=== PATIENT | male | born 1965 | race Caucasian/White ===

== ENCOUNTER → 2018-07-03 | Outpatient (CLI) | payer BC, OTHER | LOC: CARD 09:27 | PROVIDERS: ATTEND Internal Medicine Cardiovascular Disease | DX: R07.89 Other chest pain (principal); I10 Essential (primary) hypertension; E78.2 Mixed hyperlipidemia; G47.33 Obstructive sleep apnea (adult) (pediatric); Z87.891 Personal history of nicotine dependence | CPT/HCPCS: 93306 ==

== ENCOUNTER → 2018-07-04 | Outpatient (CLI) | payer BC, OTHER ==
[~2018-07-04] MED LIST: CATHETER FLUSH 10 ML SYR IV PRN
[2018-07-04 09:02] VITALS: BP 134/84
[2018-07-04 09:06] VITALS: BP 176/81
--- NOTE | 2018-07-04 15:40 | STRESS TEST ---
DATE OF SERVICE: 07/04/2018 EXERCISE MYOVIEW STRESS TEST REPORT REFERRING PHYSICIAN: Wilson Felix MD. Baseline heart rate is 56. Baseline blood pressure is 150/86. Baseline EKG is sinus rhythm with occasional . In summary, the patient was injected with 10.58 mCi of technetium-99 Myoview and the resting images were obtained. Then, the patient started exercising with a baseline heart rate, blood pressure and EKG mentioned above. He was able to exercise for a total of 9 minutes on standard [place] protocol. With peak exercise level, EKG was showing nondiagnostic changes. During recovery, heart rate and blood pressure returned to baseline, the patient received a stress dose of 29.3 mCi of technetium-99 Myoview. The resting and stress images were reviewed and compared in the short axis, horizontal long axis and vertical long axis views. Review of the images showed diaphragmatic attenuation with decreased uptake at the inferior wall with subtle reversibility, no significant ischemia or infarction was noted. SSS is 0. TID value is 1.03. On the gated images, the left ventricle appeared to be normal size with normal contractility and calculated ejection fraction of 59%. CONCLUSION: 1. Good exercise tolerance, a total of 9 minutes on standard [place] protocol, total of 10.3 METS achieving 85% of maximum expected heart rate. 2. Severe hypertensive response to exercise with peak blood pressure of 228/88, returned to baseline during recovery. 3. Minimal nondiagnostic EKG changes with exercise returned to baseline during recovery. 4. Diaphragmatic attenuation with typical male pattern with no significant ischemia or infarction on SPECT images. 5. Normal left ventricular size with normal contractility and calculated ejection fraction of 59%. Job ID: [id number] DocumentID: [id number] Dictated Date: 07/04/2018 15:19:09 Flask Pusher Date: 07/04/2018 15:39:50 Dictated By: ABIGAIL KING MD
== END ==
LOC: CARD 06:55 → EDUNIT# 07:30
PROVIDERS: ATTEND Internal Medicine Cardiovascular Disease
DX: R07.89 Other chest pain (principal); I10 Essential (primary) hypertension; E78.2 Mixed hyperlipidemia; G47.33 Obstructive sleep apnea (adult) (pediatric); Z87.891 Personal history of nicotine dependence
CPT/HCPCS: 78452; 93017

== ENCOUNTER 2018-08-22 11:39 | Day surgery (SDC) | payer OTHER ==
[~2018-08-22] VITALS: Ht 177.8 cm; Wt 131.5 kg
[2018-08-22] VITALS (9 sets, daily range): BP systolic 100–131; BP diastolic 61–81
[2018-08-22] MEDS ORDERED: HEParin 1000 UNIT/ML (10ML VIAL) FOR BOLUS ONE (11:52)
[2018-08-22] MEDS ORDERED: LIDOCAINE 1% INJ 20 ML 20 ML VIAL ONE (11:52)
[2018-08-22] MEDS ORDERED: NS IV 1000 ML 1,000 ML ONE (11:53)
[2018-08-22] MEDS ORDERED: NS IV 1000 ML 1,000 ML IV SCH ×2 (12:15→15:04)
[2018-08-22 12:29] LABS: BILIRUBIN,URINE NEGATIVE (NEGATIVE); CLARITY,URINE CLEAR; COLOR,URINE YELLOW; GLUCOSE, URINE (UA) NEGATIVE (NEGATIVE); KETONES,URINE NEGATIVE (NEGATIVE); LEUKOCYTE ESTERASE ,URINE NEGATIVE (NEGATIVE); NITRITE,URINE NEGATIVE (NEGATIVE); PH,URINE 6.5 (5-9); PROTEIN,URINE NEGATIVE (NEGATIVE); UROBILINOGEN,URINE NORMAL (NORMAL)
[2018-08-22 12:33] LABS: HEMOGLOBIN 14.9 G/DL (13.3-17.7); RED CELL DISTRIBUTION WIDTH 12.6 % (10.0-14.5); WHITE BLOOD COUNT 5.7 10^3/uL (4.3-11.0)
[2018-08-22] MEDS ORDERED: LISI-552 PO (12:37)
[2018-08-22] MEDS ORDERED: ASPI-586 PO (12:37)
[2018-08-22] MEDS ORDERED: LOVA20TA2 PO (12:37)
[2018-08-22 12:42] LABS: BACTERIA,URINE NEGATIVE /HPF; WBC,URINE RARE /HPF
[2018-08-22 12:45] LABS: INR 0.9 (0.8-1.4)
[2018-08-22 12:47] LABS: ALANINE AMINOTRANSFERASE 32 U/L (0-55); ALBUMIN 4.4 GM/DL (3.2-4.5); ALKALINE PHOSPHATASE 73 U/L (40-136); BILIRUBIN,TOTAL 1.2 MG/DL (0.1-1.0); BUN/CREATININE RATIO 20; CALCIUM 10.1 MG/DL (8.5-10.1); CARBON DIOXIDE 27 MMOL/L (21-32); CHLORIDE 105 MMOL/L (98-107); CHOLESTEROL 217 MG/DL (< 200); CREATININE SERUM 0.92 MG/DL (0.60-1.30); GFR ESTIMATED > 60; GLUCOSE 100 MG/DL (70-105); HDL CHOLESTEROL 54 MG/DL (40-60); POTASSIUM 4.6 MMOL/L (3.6-5.0); SODIUM 141 MMOL/L (135-145); TOTAL PROTEIN 7.7 GM/DL (6.4-8.2); TRIGLYCERIDES 173 MG/DL (<150); VLDL CHOLESTEROL 35 MG/DL (5-40)
--- NOTE | 2018-08-22 12:52 | Diagnostic Imaging Report ---
INDICATION: Chest pain. EXAMINATION: Portable chest at 12:41 PM. FINDINGS: The heart size and pulmonary vascularity are normal. The lungs are clear. There are no effusions or pneumothoraces. IMPRESSION: Negative chest. Dictated by: Dictated on workstation # [id number]
[2018-08-22] MEDS ORDERED: MIDAZOLAM 5 MG/5 ML (VERSED) VIAL ONE (14:05)
[2018-08-22] MEDS ORDERED: fentaNYL INJECTION 100 MCG/2 ML AMP ONE (14:05)
[2018-08-22] MEDS ORDERED: HEParin (CATH LAB) 1,000 ML IV ONE (14:24)
[2018-08-22] MEDS ORDERED: VERAPAMIL 5 MG/2 ML (CALAN) VIAL IV ONE (14:28)
[2018-08-22] MEDS ORDERED: NITRO DRIP 25000 MCG/D5W 250 ML IV ONE (14:29)
--- NOTE | 2018-08-22 15:04 | Cardiac Procedure Note-CS/ASA ---
Pre-Procedure Note Pre-Op Procedure Note H&P Reviewed The H&P was reviewed, patient examined and no changes noted. Date H&P Reviewed: Aug 22, 2018 Time H&P Reviewed: 12:00 Conscious Sedation Pre-Proced Time 12:00 ASA Score 3 For ASA 3 and 4: Consider anesthesia and medical clearance. Also, for patients with a history of failed moderate sedation consider anesthesia. Airway Lungs Heart ASA score ASA 1: a normal healthy patient ASA 2: a patient with a mild systemic disease (mid diabetes, controlled hypertension, obesity x ASA 3: a patient with a severe systemic disease that limits activity (angina , COPD, prior Myocardial infarction) ASA 4: a patient with an incapacitating disease that is a constant threat to life (CHF, renal failure) ASA 5: a moribund patient not expected to survive 24 hrs. (ruptured aneurysm) ASA 6: a declared brain- patient whose organs are being harvested. For emergent operations, add the letter E after the classification Mallampati Classification Grade 3 Sedation Plan Analgesia, Amnesia, Plan communicated to team members, Discussed options with patient/fam, Discussed risks with patient/fam The patient is an appropriate candidate to undergo the planned procedure, sedation, and anesthesia. The patient immediately re-assessed prior to indication. ABIGAIL KING MD Aug 22, 2018 15:04
--- NOTE | 2018-08-22 15:06 | Discharge Inst-Post CATH ---
Discharge Inst-CATH/EP Post Cardiac Cath/EP D/C Inst Follow Up/Plan Appointment with Dr. Arevalo's office in 2-4 weeks <b>CARDIAC CATH/EP PROCEDURE DISCHARGE INSTRUCTIONS</b> Cardiac Rehab Please be expecting a follow up call from Cardiac Rehab within in one week. ACTIVITY * Go Home directly and rest. * Limit activity of the leg (or wrist if it was used) for 7 days including aerobics, swimming, jogging, bicycling, etc. * Restrict stair-climbing for 7 days if possible, if not, climb up with your non -cath leg, then bring together on the same step. * Avoid lifting, pushing, pulling or excessive movement of the affected extremity for 7 days. * Customary sexual activity may be resumed after 2 days-use caution not to use a position that strains or causes pain to the affected extremity. * No driving for 24 hours. * NO SMOKING. * Avoid straining for bowel movements for 7 days. * Gentle walking on level ground is allowed. * Returning to work will depend on the type of procedure and the results. Your doctor will discuss this with you. CALL YOUR DOCTOR FOR ANY OF THE FOLLOWING: *If bleeding from the puncture site occurs- Apply gentle pressure to site with clean cloth and call your doctor or EMS. * If a knot or lump forms under the skin, increases in size, or causes pain. * If bruising appears to be worsening or moving further down your leg instead of disappearing. * Temperature above 101 F. CARE OF YOUR GROIN INCISION; * Bruising or purple discoloration of the skin near the puncture site is common. * You may shower only, no bathtub bathing for 5 days. Be careful to avoid slipping as your leg may feel stiff. * If a closure device was used on your femoral artery, please see the attached guide regarding care of the device and your leg. * Leave dressing on FOR 24 hours. CARE OF YOUR WRIST INCISION; * Bruising or purple discoloration of the skin near the puncture site is common. * You may shower. * DO NOT submerge wrist. * Leave dressing on FOR 24 hours. ABIGAIL AREVALO MD Aug 22, 2018 15:06
--- NOTE | 2018-08-22 15:09 | Cardiac Cath Report ---
Cardiac Cath Report Physician (s)/Tile Erector (s) Physician ABIGAIL KING MD Pre-Procedure Diagnosis Pre-Procedure Diagnosis: coronary artery disease Post-Procedure Note Procedure Start Date: Aug 22, 2018 Name of Procedure: cardiac catheterization Findings/Procedure Note PROCEDURE NOTE: After explaining the procedure to the patient, all pros and cons were explained , all questions were answered. The patient signed the consent and then he was placed on the cardiac catheterization laboratory. Groin was prepped SL fashion local anesthesia was used. Sheath placed in the right radial artery. to diagonal catheter was used to access, advanced to the left ventricular cavity, pressure was measured, left ventriculogram was done, pullback LV to aorta was done, coronary angiogram was done. At the end of the procedure the sheath was removed. Closure device was used with vascular band FINDINGS: Hemodynamics LV 103/9, end-diastolic pressure of 9 Aorta 98/68 mean of 82 ANATOMY: Left Main is free of obstructive disease Left Anterior Descending is slightly tortuous with mild disease nonobstructive disease Left Circumflex has mild disease nonobstructive disease Right Coronory Artery is dominant artery with mild disease nonobstructive disease LV Gram was done showing normal left ventricular size and systolic function estimated ejection fraction 60 percent CONCLUSION: 1. Mild coronary artery disease nonobstructive disease 2. Normal left ventricular size and systolic function estimated ejection fraction 60 percent DISCUSSION AND RECOMMENDATION: medical therapy is recommended no intervention is needed Anesthesia Type: Conscious Sedation Estimated blood loss (mL): 5 ml Contrast Amount: 45 ml Total Radiation Dose: 506 mGy Post-Procedure Diagnosis Post-operative diagnosis: Anterior chest wall pain Coronary artery disease Hypertension Hyperlipidemia ABIGAIL KING MD Aug 22, 2018 15:09
== END 2018-08-22 17:45 | disposition home or self-care (01) ==
LOC: CATH 11:39 → SDC 15:20 → CATH 17:45
PROVIDERS: ATTEND Internal Medicine Cardiovascular Disease
DX: R07.89 Other chest pain (principal); I25.10 Atherosclerotic heart disease of native coronary artery without angina pectoris; I10 Essential (primary) hypertension; E78.2 Mixed hyperlipidemia; E66.9 Obesity, unspecified; G47.33 Obstructive sleep apnea (adult) (pediatric); Z79.82 Long term (current) use of aspirin; Z79.899 Other long term (current) drug therapy; Z87.891 Personal history of nicotine dependence; R53.83 Other fatigue; R06.09 Other forms of dyspnea; E88.81 Metabolic syndrome and other insulin resistance; R09.89 Other specified symptoms and signs involving the circulatory and respiratory systems; Z82.49 Family history of ischemic heart disease and other diseases of the circulatory system; Z68.41 Body mass index [BMI] 40.0-44.9, adult
CPT/HCPCS: 36415; 71045; 80053; 80061; 81000; 85027; 85610; 85730; 87081; 93458

== ENCOUNTER 2019-10-21 04:52 | Inpatient (IN) | payer OTHER ==
[2019-10-21] VITALS (18 sets, daily range): BP systolic 99–143; BP diastolic 65–93
[~2019-10-21] VITALS: Ht 177 cm; Wt 128.3 kg
[~2019-10-21 04:52] MED LIST changes: +ASPI-586 PO; -CATHETER FLUSH 10 ML SYR IV PRN; +LISI-552 PO; +LOVA20TA2 PO
--- OUTSIDE RECORDS SUMMARY | 2019-10-21 04:58 | XMS REPORT | Continuity of Care Document ---
Author Organization Unknown Address Unknown Phone Unavailable Allergies Active Description Code Type Severity Reaction Onset Reported/Identified Relationship to Patient Clinical Status Yes NO KNOWN DRUG ALLERGIES UNKNOWN UNKNOWN Yes No Allergy Information Available [id number] Drug Allergy Unknown N/A 019 Yes No Known Allergies [id number] Drug Allergy Unknown N/A 08/22/2018 Medications Medication Packaging Start Date St op Date Route Dosage Sig LACTATED RINGERS 1000CC IV BAG INJ ml 03/13/2019 03/20/2019 CONTINUOUSEVERY 0 Hour Problems Date Dx Coded Attending Type Code Diagnosis Diagnosed By 07/04/2018 ABIGAIL KING MD Ot E78. 2 MIXED HYPERLIPIDEMIA 07/04/2018 ABIGAIL KING MD Ot G47. 33 OBSTRUCTIVE SLEEP APNEA (ADULT) (PEDIATR 07/04/2018 ABIGAIL KING MD Ot I10 ESSENTIAL (PRIMARY) HYPERTENSION 07/04/2018 ABIGAIL KING MD Ot R07. 89 OTHER CHEST PAIN 07/04/2018 ABIGAIL KING MD Ot Z87.891 PERSONAL HISTORY OF NICOTINE DEPENDENCE 07/05/2018 ABIGAIL KING MD Ot E78. 2 MIXED HYPERLIPIDEMIA 07/05/2018 ABIGAIL KING MD Ot G47. 33 OBSTRUCTIVE SLEEP APNEA (ADULT) (PEDIATR 07/05/2018 ABIGAIL KING MD Ot I10 ESSENTIAL (PRIMARY) HYPERTENSION 07/05/2018 ABIGAIL KING MD Ot R07. 89 OTHER CHEST PAIN 07/05/2018 ABIGAIL KING MD Ot Z87.891 PERSONAL HISTORY OF NICOTINE DEPENDENCE 07/11/2018 ABIGAIL KING MD Ot E78. 2 MIXED HYPERLIPIDEMIA 07/11/2018 ABIGAIL KING MD Ot G47. 33 OBSTRUCTIVE SLEEP APNEA (ADULT) (PEDIATR 07/11/2018 ABIGAIL KING MD Ot I10 ESSENTIAL (PRIMARY) HYPERTENSION 07/11/2018 ABIGAIL KING MD Ot R07. 89 OTHER CHEST PAIN 07/11/2018 ABIGAIL KING MD Ot Z87.891 PERSONAL HISTORY OF NICOTINE DEPENDENCE 07/16/2018 ABIGAIL KING MD Ot E78. 2 MIXED HYPERLIPIDEMIA 07/16/2018 ABIGAIL KING MD Ot G47. 33 OBSTRUCTIVE SLEEP APNEA (ADULT) (PEDIATR 07/16/2018 ABIGAIL KING MD Ot I10 ESSENTIAL (PRIMARY) HYPERTENSION 07/16/2018 ABIGAIL KING MD Ot R07. 89 OTHER CHEST PAIN 07/16/2018 ABIGAIL KING MD Ot Z87.891 PERSONAL HISTORY OF NICOTINE DEPENDENCE 07/16/2018 ABIGAIL KING MD Ot E78. 2 MIXED HYPERLIPIDEMIA 07/16/2018 ABIGAIL KING MD Ot G47. 33 OBSTRUCTIVE SLEEP APNEA (ADULT) (PEDIATR 07/16/2018 ABIGAIL KING MD Ot I10 ESSENTIAL (PRIMARY) HYPERTENSION 07/16/2018 ABIGAIL KING MD Ot R07. 89 OTHER CHEST PAIN 07/16/2018 ABIGAIL KING MD Ot Z87.891 PERSONAL HISTORY OF NICOTINE DEPENDENCE 08/22/2018 ABIGAIL KING MD Ot E66. 9 OBESITY, UNSPECIFIED 08/22/2018 ABIGAIL KING MD Ot E78. 2 MIXED HYPERLIPIDEMIA 08/22/2018 ABIGAIL KING MD Ot E88. 81 METABOLIC SYNDROME 08/22/2018 ABIGAIL KING MD Ot G47. 33 OBSTRUCTIVE SLEEP APNEA (ADULT) (PEDIATR 08/22/2018 ABIGAIL KING MD Ot I10 ESSENTIAL (PRIMARY) HYPERTENSION 08/22/2018 ABIGAIL KING MD Ot I25. 10 ATHSCL HEART DISEASE OF [place] CORONARY 08/22/2018 ABIGAIL KING MD Ot R06. 09 OTHER FORMS OF DYSPNEA 08/22/2018 ABIGAIL KING MD Ot R07. 89 OTHER CHEST PAIN 08/22/2018 ABIGAIL KING MD Ot R09. 89 OT SYMPTOMS AND SIGNS INVOLVING THE CIR 08/22/2018 ABIGAIL KING MD Ot R53. 83 OTHER FATIGUE 08/22/2018 ABIGAIL KING MD Ot Z68. 41 BODY MASS INDEX (BMI) 40.0-44.9, ADULT 08/22/2018 ABIGAIL KING MD Ot Z79. 82 LONG-TERM (CURRENT) USE OF ASPIRIN 08/22/2018 ABIGAIL KING MD Ot Z79.899 OTHER LONG-TERM (CURRENT) DRUG THERAPY 08/22/2018 ABIGAIL KING MD Ot Z82. 49 FAMILY HX OF ISCHEM HEART DIS AND OTH DI 08/22/2018 ABIGAIL KING MD Ot Z87.891 PERSONAL HISTORY OF NICOTINE DEPENDENCE 08/23/2018 ABIGIAL KING MD Ot E66. 9 OBESITY, UNSPECIFIED 08/23/2018 ABIGAIL KING MD Ot E78. 2 MIXED HYPERLIPIDEMIA 08/23/2018 ABIGAIL KING MD Ot E88. 81 METABOLIC SYNDROME 08/23/2018 ABIGAIL KING MD Ot G47. 33 OBSTRUCTIVE SLEEP APNEA (ADULT) (PEDIATR 08/23/2018 ABIGAIL KING MD Ot I10 ESSENTIAL (PRIMARY) HYPERTENSION 08/23/2018 ABIGAIL KING MD Ot I25. 10 ATHSCL HEART DISEASE OF [place] CORONARY 08/23/2018 ABIGAIL KING MD Ot R06. 09 OTHER FORMS OF DYSPNEA 08/23/2018 ABIGAIL KING MD Ot R07. 89 OTHER CHEST PAIN 08/23/2018 ABIGAIL KING MD Ot R09. 89 OT SYMPTOMS AND SIGNS INVOLVING THE CIR 08/23/2018 ABIGAIL KING MD Ot R53. 83 OTHER FATIGUE 08/23/2018 ABIGAIL KING MD Ot Z68. 41 BODY MASS INDEX (BMI) 40.0-44.9, ADULT 08/23/2018 ABIGAIL KING MD Ot Z79. 82 LONG-TERM (CURRENT) USE OF ASPIRIN 08/23/2018 ABIGAIL KING MD Ot Z79.899 OTHER LONG-TERM (CURRENT) DRUG THERAPY 08/23/2018 ABIGAIL KING MD Ot Z82. 49 FAMILY HX OF ISCHEM HEART DIS AND OTH DI 08/23/2018 ABIGAIL KING MD Ot Z87.891 PERSONAL HISTORY OF NICOTINE DEPENDENCE 03/13/2019 BETH OBRIEN 455.0 INTERNAL HEMORRHOIDS WITHOUT MENTION OF COMPLICATION 03/13/2019 BETH OBRIEN 569.3 HEMORRHAGE OF RECTUM AND ANUS 03/13/2019 BETH OBRIEN K62.5 HEMORRHAGE OF ANUS AND RECTUM 03/13/2019 BETH OBRIEN K64.1 SECOND DEGREE HEMORRHOIDS Procedures There is no data. Results Test Result Range Automated blood complete blood count (he mogram) panel - 08/22/18 12:07 Blood leukocytes automated count (number/volume) 5.7 10*3/uL 4.3-11.0 Blood erythrocytes automated count (number/volume) 4.90 10*6/uL 4.35-5.85 Venous blood hemoglobin measurement (mass/volume) 14.9 g/dL 13.3-17.7 Blood hematocrit (volume fraction) 45 % 40-54 Automated erythrocyte mean corpuscular volume 91 [ foz_us] 80-99 Automated erythrocyte mean corpuscular h emoglobin (mass per erythrocyte) 30 pg 25-34 Automated erythrocyte mean corpuscular h emoglobin concentration measurement (mass/volume) 33 g/dL 32-36 Automated erythrocyte distribution width ratio 12. 6 % 10.0- 14.5 Automated blood platelet count (count/volume) 239 10*3/uL 130-400 Automated blood platelet mean volume measurement 10.0 [foz_us] 7.4-10.4 Complete urinalysis with reflex to cultu re - 08/22/18 12:07 Urine color determination YELLOW NRG Urine clarity determination CLEAR NR G Urine pH measurement by test strip 6.5 5-9 Specific gravity of urine by test strip 1.010 1.016-1.022 Urine protein assay by test strip, semi-quantitative NEGATIVE NEGATIVE Urine glucose detection by automated test strip NE GATIVE NEGATIVE Erythrocytes detection in urine sediment by light micr oscopy NEGATIVE NEGATIVE Urine ketones detection by automated test strip NE GATIVE NEGATIVE Urine nitrite detection by test strip NEGATIVE NEGATIVE Urine total bilirubin detection by test strip NEGA TIVE NEGATIVE Urine urobilinogen measurement by automated test strip (mass/volume) NORMAL NORMAL Urine leukocyte esterase detection by dipstick NEG ATIVE NEGATIVE Automated urine sediment erythrocyte cou nt by microscopy (number/high power field) NONE NRG Automated urine sediment leukocyte count by microscopy (number/high power field) RARE NRG Bacteria detection in urine sediment by light microsco py NEGATIVE NRG Crystals detection in urine sediment by light microsco py NONE NRG Casts detection in urine sediment by light microscopy NONE NRG Mucus detection in urine sediment by light microscopy NEGATIVE NRG Complete urinalysis with reflex to culture NO NRG Comprehensive metabolic panel - 08/22/18 12:07 Serum or plasma sodium measurement (moles/volume) 141 mmol/L 135-145 Serum or plasma potassium measurement (moles/volume) 4.6 mmol/L 3.6-5.0 Serum or plasma chloride measurement (moles/volume) 105 mmol/L 98-107 Carbon dioxide 27 mmol/L 21-32 Serum or plasma anion gap determination (moles/volume) 9 mmol/L 5-14 Serum or plasma urea nitrogen measurement (mass/volume ) 18 mg/dL 7-18 Serum or plasma creatinine measurement (mass/volume) 0.92 mg/dL 0.60-1.30 Serum or plasma urea nitrogen/creatinine mass ratio 20 NRG Serum or plasma creatinine measurement w ith calculation of estimated glomerular filtration rate > NRG Serum or plasma glucose measurement (mass/volume) 100 mg/dL 70-105 Serum or plasma calcium measurement (mass/volume) 10.1 mg/dL 8.5-10.1 Serum or plasma total bilirubin measurement (mass/volu me) 1.2 mg/dL 0.1-1.0 Serum or plasma alkaline phosphatase jim surement (enzymatic activity/volume) 73 U/L 40-136 Serum or plasma aspartate aminotransfera se measurement (enzymatic activity/volume) 20 U/L 5-34 Serum or plasma alanine aminotransferase measurement (enzymatic activity/volume) 32 U/L 0-55 Serum or plasma protein measurement (mass/volume) 7.7 g/dL 6.4-8.2 Serum or plasma albumin measurement (mass/volume) 4.4 g/dL 3.2-4.5 CALCIUM CORRECTED 9.8 mg/dL 8.5-10.1 Lipid 1996 panel - 08/22/18 12:07 Serum or plasma triglyceride measurement (mass/volume) 173 mg/dL <150 Serum or plasma cholesterol measurement (mass/volume) 217 mg/dL < 200 Serum or plasma cholesterol in HDL measurement (mass/v olume) 54 mg/dL 40-60 Cholesterol in LDL [mass/volume] in serum or plasma by direct assay 144 mg/dL 1-129 Serum or plasma cholesterol in VLDL measurement (mass/ volume) 35 mg/dL 5-40 PT panel in platelet poor plasma by coag ulation assay - 08/22/18 12:07 Prothrombin time (PT) in platelet poor plasma by coagu lation assay 12.0 s 12.2-14.7 INR in platelet poor plasma or blood by coagulation as say 0.9 0.8-1.4 Activated partial thromboplastin time (a PTT) in platelet poor plasma bycoagulation assay - 08/22/18 12:07 Activated partial thromboplastin time (a PTT) in platelet poor plasma bycoagulation assay 31 s 24-35 Methicillin resistant Staphylococcus aur eus (MRSA) screening culture - 08/22/18 12:07 Methicillin resistant Staphylococcus aureus (MRSA) scr eening culture NEG NRG CBC - 02/27/19 10:49 WHITE BLOOD CELL COUNT 5.2 Thousand/uL 3 .8-10.8 RED BLOOD CELL COUNT 4.66 Million/uL 4.2 0-5.80 HEMOGLOBIN 14.2 g/dL 13.2-17.1 HEMATOCRIT 42.2 % 38.5-50.0 MCV 90.6 fL 80.0-100.0 MCH 30.5 pg 27.0-33.0 MCHC 33.6 g/dL 32.0-36.0 RDW 12.3 % 11.0-15.0 PLATELET COUNT 244 Thousand/uL 140-400 MPV 10.6 fL 7.5-12.5 ABSOLUTE NEUTROPHILS 2543 cells/uL 1500- 7800 ABSOLUTE LYMPHOCYTES 2080 cells/uL 850-3 900 ABSOLUTE MONOCYTES 426 cells/uL 200-950 ABSOLUTE EOSINOPHILS 120 cells/uL 15-500 ABSOLUTE BASOPHILS 31 cells/uL 0-200 NEUTROPHILS 48.9 % NRG LYMPHOCYTES 40.0 % NRG MONOCYTES 8.2 % NRG EOSINOPHILS 2.3 % NRG BASOPHILS 0.6 % NRG FERRITIN, SERUM - 02/27/19 10:49 FERRITIN 391 ng/mL 38-380 BMP - 03/06/19 12:14 Anion Gap 14 6-14 BUN 17 mg/dL 5-25 Calcium 9.6 mg/dL 8.3-10.4 Chloride 108 mmol/L 95-114 CO2 23 mEq/L 22-33 Creat 0.91 mg/dL 0.50-1.50 eGFR 86 mL/min/1.73m2 >59 Glucose 120 mg/dL 70-110 Osmo 294 280-295 Potassium 4.3 mmol/L 3.5-5.3 Sodium 141 mmol/L 134-148 LIPID PANEL - 09/30/19 09:31 CHOLESTEROL, TOTAL 177 mg/dL <200 HDL CHOLESTEROL 54 mg/dL > OR = 40 TRIGLYCERIDES 102 mg/dL <150 LDL-CHOLESTEROL 103 mg/dL (calc) NRG CHOL/HDLC RATIO 3.3 (calc) <5.0 NON HDL CHOLESTEROL 123 mg/dL (calc) <13 0 CMP - 09/30/19 09:31 GLUCOSE 115 mg/dL 65-99 UREA NITROGEN (BUN) 17 mg/dL 7-25 CREATININE 0.95 mg/dL 0.70-1.33 eGFR NON-AFR. BURMESE 90 mL/min/1.73m2 > OR = 60 eGFR 104 mL/min/1.73m2 > OR = 60 BUN/CREATININE RATIO NOT APPLICABLE (calc) 6-22 SODIUM 139 mmol/L 135-146 POTASSIUM 4.8 mmol/L 3.5-5.3 CHLORIDE 105 mmol/L 98-110 CARBON DIOXIDE 24 mmol/L 20-32 CALCIUM 9.0 mg/dL 8.6-10.3 PROTEIN, TOTAL 6.5 g/dL 6.1-8.1 ALBUMIN 4.1 g/dL 3.6-5.1 GLOBULIN 2.4 g/dL (calc) 1.9-3.7 ALBUMIN/GLOBULIN RATIO 1.7 (calc) 1.0-2. 5 BILIRUBIN, TOTAL 0.9 mg/dL 0.2-1.2 ALKALINE PHOSPHATASE 77 U/L 35-144 AST 18 U/L 10-35 ALT 26 U/L 9-46 A1C - 09/30/19 09:31 HEMOGLOBIN A1c 6.0 % of total Hgb <5.7 INSULIN LEVEL - 09/30/19 09:31 INSULIN 9.6 uIU/mL NRG Encounters ACCT No. Visit Date/Time Discharge Status Pt. Type Provider Facility Loc./Unit Complaint [id number] 03/13/2019 00:00:00 03/13/2019 14:28: 00 DIS Outpatient BETH OBRIEN [id number] 03/06/2019 11:52:00 03/06/2019 23:59: 00 DIS Outpatient LAM CROOKS [id number] 03/12/2019 13:55:24 Document Registration [id number] 08/22/2018 11:39:00 019 17:45:00 DIS Outpatient CHRISTINE MOCTEZUMA, ABIGAIL Marroquin [facility] ABN STRESS TEST, CP HTN , HLP [id number] 07/04/2018 06:55:00 23:59:59 CLS Outpatient ABIGAIL KING MD Via [facility] CARD ANTERIOR CHEST WALL ALBA Campos,HTN [id number] 07/03/2018 09:27:00 23:59:59 CLS Outpatient ABIGAIL KING MD Via [facility] CARD ANTERIOR CHEST WALL ALBA Campos,HTN [id number] 09/30/2019 09:15:00 09/30/2019 23:59: 59 CLS Outpatient [facility] [id number] 09/30/2019 09:15:00 Document Registration [id number] 02/27/2019 09:15:00 Document Registration
[2019-10-21] MEDS ORDERED: EPINEPHrine INJECTION 1 MG/ML AMP IM ONE (05:15)
[2019-10-21] MEDS ORDERED: methylPREDNISolone 125 MG (Solu-MEDROL) VIAL IVP ONE (05:15)
[2019-10-21] MEDS ORDERED: diphenhydrAMINE 50 MG/ML INJ (BENADRYL) IVP ONE (05:15)
[2019-10-21] MEDS ORDERED: FAMOTIDINE 20MG/2ML IV (PEPCID) IVP ONE (05:15)
[2019-10-21 05:17] LABS: BASOPHILS % (AUTO) 0 % (0-10); EOSINOPHILS # (AUTO) 0.1 10^3/uL (0.0-0.3); EOSINOPHILS % (AUTO) 1 % (0-10); HEMATOCRIT 40 % (40-54); HEMOGLOBIN 13.4 G/DL (13.3-17.7); LYMPHOCYTES # (AUTO) 3.2 X 10^3 (1.0-4.0); LYMPHOCYTES % (AUTO) 32 % (12-44); MEAN CORPUSCULAR HEMOGLOBIN 31 PG (25-34); MEAN CORPUSCULAR HGB CONC 33 G/DL (32-36); MEAN CORPUSCULAR VOLUME 92 FL (80-99); MEAN PLATELET VOLUME 9.9 FL (7.4-10.4); MONOCYTES # (AUTO) 0.7 X 10^3 (0.0-1.0); MONOCYTES % (AUTO) 7 % (0-12); NEUTROPHILS % (AUTO) 60 % (42-75); PLATELET COUNT 280 10^3/uL (130-400); RED CELL DISTRIBUTION WIDTH 12.5 % (10.0-14.5); WHITE BLOOD COUNT 10.1 10^3/uL (4.3-11.0)
--- OUTSIDE RECORDS SUMMARY | 2019-10-21 05:25 | XMS REPORT | Continuity of Care Document ---
Author Organization Unknown Address Unknown Phone Unavailable Allergies Active Description Code Type Severity Reaction Onset Reported/Identified Relationship to Patient Clinical Status Yes NO KNOWN DRUG ALLERGIES UNKNOWN UNKNOWN Yes No Allergy Information Available [id number] Drug Allergy Unknown N/A 019 Yes No Known Allergies [id number] Drug Allergy Unknown N/A 08/22/2018 Medications Medication [...] Ot I25. 10 ATHSCL HEART DISEASE OF [place] CORONARY 08/22/2018 ABIGAIL KING MD Ot R06. [...] 08/22/2018 ABIGAIL KING MD Ot Z79. 82 ASSISTED (CURRENT) USE OF ASPIRIN 08/22/2018 ABIGAIL KING MD Ot Z79.899 OTHER ASSISTED (CURRENT) DRUG THERAPY 08/22/2018 ABIGAIL KING MD Ot Z82. 49 FAMILY HX OF ISCHEM HEART DIS AND OTH DI 08/22/2018 ABIGAIL KING MD Ot Z87.891 PERSONAL HISTORY OF NICOTINE DEPENDENCE 08/23/2018 ABIGAIL KING MD Ot E66. 9 OBESITY, UNSPECIFIED 08/23/2018 ABIGAIL KING MD Ot E78. 2 MIXED HYPERLIPIDEMIA 08/23/2018 ABIGAIL KING MD Ot E88. 81 METABOLIC SYNDROME 08/23/2018 ABIGAIL KING MD Ot G47. 33 OBSTRUCTIVE SLEEP APNEA (ADULT) (PEDIATR 08/23/2018 ABIGAIL KING MD Ot I10 ESSENTIAL (PRIMARY) HYPERTENSION 08/23/2018 ABIGAIL KING MD Ot I25. 10 ATHSCL HEART DISEASE OF [place] CORONARY 08/23/2018 ABIGAIL KING MD Ot R06. [...] 08/23/2018 ABIGAIL KING MD Ot Z79. 82 ASSISTED (CURRENT) USE OF ASPIRIN 08/23/2018 ABIGAIL KING MD Ot Z79.899 OTHER ASSISTED (CURRENT) DRUG THERAPY 08/23/2018 ABIGAIL KING MD [...] 7-25 CREATININE 0.95 mg/dL 0.70-1.33 eGFR NON-AFR. LAO 90 mL/min/1.73m2 > OR = 60 eGFR [...] - 09/30/19 09:31 INSULIN 9.6 uIU/mL NRG Complete blood count (CBC) with automate d white blood cell (WBC) differential - 10/21/19 05:00 Blood leukocytes automated count (number/volume) 10.1 10*3/uL 4.3-11.0 Blood erythrocytes automated count (number/volume) 4.36 10*6/uL 4.35-5.85 Venous blood hemoglobin measurement (mass/volume) 13.4 g/dL 13.3-17.7 Blood hematocrit (volume fraction) 40 % 40-54 Automated erythrocyte mean corpuscular volume 92 [ foz_us] 80-99 Automated erythrocyte mean corpuscular h emoglobin (mass per erythrocyte) 31 pg 25-34 Automated erythrocyte mean corpuscular h emoglobin concentration measurement (mass/volume) 33 g/dL 32-36 Automated erythrocyte distribution width ratio 12. 5 % 10.0- 14.5 Automated blood platelet count (count/volume) 280 10*3/uL 130-400 Automated blood platelet mean volume measurement 9.9 [foz_us] 7.4-10.4 Automated blood neutrophils/100 leukocytes 60 % 42-75 Automated blood lymphocytes/100 leukocytes 32 % 12-44 Blood monocytes/100 leukocytes 7 % 0-12 Automated blood eosinophils/100 leukocytes 1 % 0-10 Automated blood basophils/100 leukocytes 0 % 0-10 Blood neutrophils automated count (number/volume) 6.0 10*3 1.8-7.8 Blood lymphocytes automated count (number/volume) 3.2 10*3 1.0-4.0 Blood monocytes automated count (number/volume) 0. 7 10*3 0.0-1.0 Automated eosinophil count 0.1 10*3/uL 0 .0-0.3 Automated blood basophil count (count/volume) 0.0 10*3/uL 0.0-0.1 Encounters ACCT No. Visit Date/Time Discharge Status Pt. Type Provider Facility Loc./Unit Complaint [id number] 03/13/2019 00:00:00 03/13/2019 14:28: 00 DIS Outpatient BETH OBRIEN [id number] 03/06/2019 11:52:00 03/06/2019 23:59: 00 DIS Outpatient LAM CROOKS [id number] 03/12/2019 13:55:24 Document Registration [id number] 08/22/2018 11:39:00 17:45:00 DIS Outpatient ABIGAIL KING MD Via [facility] CATH ABN STRESS TEST, CP HTN , HLP [id number] 07/04/2018 06:55:00 23:59:59 CLS Outpatient ABIGAIL KING MD [facility] CARD ANTERIOR CHEST WALL ALBA N,HTN [id number] 07/03/2018 09:27:00 23:59:59 CLS Outpatient ABIGAIL KING MD Via [facility] CARD ANTERIOR CHEST WALL ALBA N,HTN [id number] 10/21/2019 05:18:00 Document Registration [id number] 09/30/2019 09:15:00 09/30/2019 23:59: 59 [facility] [id number] 09/30/2019 09:15:00 Document Registration [id number] 02/27/2019 09:15:00 Document Registration
[2019-10-21 05:27] LABS: ALANINE AMINOTRANSFERASE 20 U/L (0-55); ALBUMIN 3.7 GM/DL (3.2-4.5); ALKALINE PHOSPHATASE 84 U/L (40-136); BILIRUBIN,TOTAL 0.4 MG/DL (0.1-1.0); BUN/CREATININE RATIO 17; CARBON DIOXIDE 22 MMOL/L (21-32); CHLORIDE 105 MMOL/L (98-107); CREATININE SERUM 0.96 MG/DL (0.60-1.30); GFR ESTIMATED > 60; GLUCOSE 102 MG/DL (70-105); POTASSIUM 4.4 MMOL/L (3.6-5.0); SODIUM 141 MMOL/L (135-145); TOTAL PROTEIN 6.8 GM/DL (6.4-8.2)
--- NOTE | 2019-10-21 05:31 | ED General ---
General Chief Complaint: General Problems/Pain Stated Complaint: HIVE/SWOLLEN TONGUE Nursing Triage Note: Pt complaining of facial swelling that started Monday night. Pt was seen at Urgent care Monday and started an oral steroid. Nursing Sepsis Screen: No Definite Risk History of Present Illness Date Seen by Provider: Oct 21, 2019 Time Seen by Provider: 05:26 Initial Comments Patient presenting to emergency department for evaluation of an apparent reaction. On Monday night and through the morning of Monday he was having hand and feet swelling that was causing him pain and he also had a splotchy red rash as well that was pruritic. He was seen at an urgent care on Monday morning and prescribed prednisone and Benadryl and has been taking it since that time. There was a thought that he may have eaten something that caused an [place] rgic reaction. He feels that his rash is getting better and he is less swollen but he started having swelling to the right side of his face yesterday and through the night he has his entire lips swollen and his tongue is swollen as well and he feels that he is having a difficult time swallowing and breathing. His medications include lisinopril and a statin. He does have quite swollen lips and does seem to have a difficult time speaking. He is in no obvious distress with normal vital signs. Allergies and Home Medications Allergies Coded Allergies: No Known Allergies (Verified Allergy, Unknown, 08/22/18) Home Medications Aspirin 81 Mg Tablet.dr, 81 MG PO DAILY, (Reported) Lisinopril 20 Mg Tablet, 20 MG PO DAILY, (Reported) Lovastatin 20 Mg Tablet, 20 MG PO DAILY, (Reported) Patient Home Medication List Home Medication List Reviewed: Yes Review of Systems Review of Systems Constitutional: no symptoms reported EENTM: mouth swelling Respiratory: short of breath Cardiovascular: edema Gastrointestinal: no symptoms reported Genitourinary: no symptoms reported Musculoskeletal: joint pain Skin: rash Psychiatric/Neurological: No Symptoms Reported All Other Systems Reviewed Negative Unless Noted: Yes Past Dpatllq-Hiznxt-Xyxgvk Hx Patient Social History Alcohol Use: Denies Use Number of Drinks Today: AA Alcohol Beverage of Choice: Beer Recreational Drug Use: No Type Used: Cigars, Cigarettes 2nd Hand Smoke Exposure: No Recent Foreign Travel: No Contact w/Someone Who Travel: No Recent Infectious Disease Expo: No Physical Abuse: No Sexual Abuse: No Past Medical History Surgeries: Yes (LYMPH NODE L SIDE OF NECK) Respiratory: Yes Sleep Apnea Currently Using CPAP: Yes Currently Using BIPAP: No Cardiac: No Neurological: Yes (IN MIDDLE SCHOOL) Concussion Genitourinary: No Gastrointestinal: No Endocrine: No Cancer: No Physical Exam Vital Signs Vital Signs - First Documented 10/21/19 04:57 Temp 36.5 Pulse 76 Resp 16 B/P (MAP) 133/76 (95) Pulse Ox 97 O2 Delivery Room Air Capillary Refill : Less Than 3 Seconds Height, Weight, BMI Height: 5'10.00" Weight: 290lbs. 0.0oz. 131.360814yy; 39.00 BMI Method: General Appearance: No Apparent Distress, WD/WN HEENT: PERRL/EOMI, Other (lips are quite swollen bilaterally and his tongue is moderately swollen as well. I can see his posterior pharynx slightly and it does not appear swollen. I do not see any definite soft palate edema) Neck: Supple Respiratory: Lungs Clear, No Respiratory Distress Cardiovascular: Regular Rate, Rhythm Gastrointestinal: Soft Back: Normal Inspection Extremity: Normal Capillary Refill Neurologic/Psychiatric: Alert, Oriented x3 Skin: Warm/Dry, Other (nonspecific red splotchy rash that is present on his b ack approximately as well as his arms and a few spots on his legs. Rash looks more consistent with insect bites than hives) Progress/Results/Core Measures Suspected Sepsis Recent Fever Within 48 Hours: No Infection Criteria Present: None New/Unexplained Altered Menta: No Sepsis Screen: No Definite Risk SIRS Temperature: Pulse: 76 Respiratory Rate: 16 Laboratory Tests 10/21/19 05:00: White Blood Count 10.1 Blood Pressure 133 /76 Mean: 95 Laboratory Tests 10/21/19 05:00: Platelet Count 280 Results/Orders Lab Results Laboratory Tests Test 10/21/19 05:00 Range/Units White Blood Count 10.1 4.3-11.0 10^3/uL Red Blood Count 4.36 4.35-5.85 10^6/uL Hemoglobin 13.4 13.3-17.7 G/DL Hematocrit 40 40-54 % Mean Corpuscular Volume 92 80-99 FL Mean Corpuscular Hemoglobin 31 25-34 PG Mean Corpuscular Hemoglobin Concent 33 32-36 G/DL Red Cell Distribution Width 12.5 10.0-14.5 % Platelet Count 280 130-400 10^3/uL Mean Platelet Volume 9.9 7.4-10.4 FL Neutrophils (%) (Auto) 60 42-75 % Lymphocytes (%) (Auto) 32 12-44 % Monocytes (%) (Auto) 7 0-12 % Eosinophils (%) (Auto) 1 0-10 % Basophils (%) (Auto) 0 0-10 % Neutrophils # (Auto) 6.0 1.8-7.8 X 10^3 Lymphocytes # (Auto) 3.2 1.0-4.0 X 10^3 Monocytes # (Auto) 0.7 0.0-1.0 X 10^3 Eosinophils # (Auto) 0.1 0.0-0.3 10^3/uL Basophils # (Auto) 0.0 0.0-0.1 10^3/uL My Orders Orders - DENIS MOORE DO Cbc With Automated Diff (10/21/19 05:11) Comprehensive Metabolic Panel (10/21/19 05:11) Methylprednisolone Sod Succ (Solu-Medrol (10/21/19 05:15) Famotidine Injection (Pepcid Injection) (10/21/19 05:15) Diphenhydramine Injection (Benadryl Inje (10/21/19 05:15) Epinephrine 1 Mg Injection (Adrenalin I (10/21/19 05:15) Ed Iv/Invasive Line Start (10/21/19 05:14) Vital Signs/I&O 10/21/19 04:57 Temp 36.5 Pulse 76 Resp 16 B/P (MAP) 133/76 (95) Pulse Ox 97 O2 Delivery Room Air Capillary Refill : Less Than 3 Seconds Blood Pressure Mean: 95 Progress Note : Progress Note Patient's lip and tongue swelling appears most consistent with angioedema in my opinion. The rash certainly could be hives. This may be on the spectrum of angioedema and a hypersensitivity reaction but the swelling and he tongue and lips is most consistent with angioedema. He has not taken his lisinopril for approximately 24 hours and I will have him continue to hold this. I spoke to him about his cardiac history and he had a clean catheter in June of last year spoke to him about the benefits and risks of epinephrine and he consented to treatment with epinephrine. He does say he feels pruritic all over which would go more so along with a hypersensitivity reaction. I will also give him Solu- Medrol Benadryl and Pepcid. Given he is having complaints of difficulty speaking and shortness of breath I do believe patient warrants admission to the ICU to make sure that his swelling does not get worse. His airway is patent at this time and his angioedema is not severe so do not think intubation is required here in the emergency department although I told him this could be a possibility if his symptoms worsen. Patient transferred to [facility] in guarded condition with the accepting doctor being Dr. Mcmullen. Critical Care Note Critical Care Total Time (minutes) 32 Departure Impression Primary Impression: Angioedema Qualified Codes: T78.3XXA - Angioneurotic edema, initial encounter Additional Impressions: Rash Generalized pruritus Disposition: ADMITTED INPATIENT Condition: Unchanged Transfer Transfer Reason: Exceeds level of care Time Spoke to Accepting Phy: 05:10 Transfer Facility: [facility] Method of Transfer: EMS Departure-Patient Inst. Referrals: SELF,SAROJ MOCTEZUMA (PCP/Family) Primary Care Physician DENIS MOORE DO Oct 21, 2019 05:31
[2019-10-21] MEDS ORDERED: CATHETER FLUSH 10 ML SYR IV PRN (07:15)
--- NOTE | 2019-10-21 07:33 | Pulmonary Consultation ---
History of Present Illness History of Present Illness Date Seen by Provider: Oct 21, 2019 Time Seen by Provider: 07:28 Date of Admission Allergies and Home Medications Allergies Coded Allergies: No Known Allergies (Verified Allergy, Unknown, 08/22/18) Home Medications Aspirin 81 Mg Tablet.dr, 81 MG PO DAILY, (Reported) Lisinopril 20 Mg Tablet, 20 MG PO DAILY, (Reported) Lovastatin 20 Mg Tablet, 20 MG PO DAILY, (Reported) Past Jjjmtpk-Bcyztb-Rsyxqb Hx Patient Social History Alcohol Use: Denies Use Number of Drinks Today: AA Alcohol Beverage of Choice: Beer Recreational Drug Use: No Type Used: Cigars, Cigarettes 2nd Hand Smoke Exposure: No Recent Foreign Travel: No Contact w/Someone Who Travel: No Recent Infectious Disease Expo: No Physical Abuse: No Sexual Abuse: No Past Medical History Surgeries: Yes (LYMPH NODE L SIDE OF NECK) Respiratory: Yes Sleep Apnea Currently Using CPAP: Yes Currently Using BIPAP: No Cardiac: No 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 0.0oz. 131.558892by; 39.00 BMI Method: Exam Exam Vital Signs Date Time Temp Pulse Resp B/P (MAP) Pulse Ox O2 Delivery O2 Flow Rate FiO2 10/21/19 05:59 72 16 117/72 99 Room Air 10/21/19 04:57 36.5 76 16 133/76 (95) 97 Room Air Height & Weight Height: 5'10.00" Weight: 290lbs. 0.0oz. 131.402101sf; 39.00 BMI Method: General Appearance: No Apparent Distress, WD/WN HEENT: PERRL/EOMI, Other (lips are quite swollen bilaterally and his tongue is moderately swollen as well. I can see his posterior pharynx slightly and it does not appear swollen. I do not see any definite soft palate edema) Neck: Supple Respiratory: Lungs Clear, No Respiratory Distress Cardiovascular: Regular Rate, Rhythm Capillary Refill: Less Than 3 Seconds Extremity: Normal Capillary Refill Neurologic/Psychiatric: Alert, Oriented x3 Skin: Warm/Dry, Other (nonspecific red splotchy rash that is present on his back approximately as well as his arms and a few spots on his legs. Rash looks more consistent with insect bites than hives) Results Lab Laboratory Tests 10/21/19 05:00 Assessment/Plan Assessment/Plan Angioedema - probably secondary to lisinopril -Start solumedrol, Benadryl, and Pepcid -Monitor close -Hold Lisinopril LAM CROOKS DO Oct 21, 2019 07:32
[2019-10-21] MEDS: FAMOTIDINE 20MG/2ML IV (PEPCID) IVP SCH ×2 (08:17→21:08)
[2019-10-21] MEDS ORDERED: diphenhydrAMINE 50 MG/ML INJ (BENADRYL) IVP SCH (09:00)
--- NOTE | 2019-10-21 09:03 | History & Physical ---
HPI History of Present Illness: Monday night had itching, went to walk-in on Sat am and was given prednisone, benadryl and has been taking it regularly. Had migratory swelling, one hand and another, then in feet and couldn't walk due to swelling. Overnight he had swelling in his face/mouth and that led him to come in due to concerns about worsening and his breathing. He has had itching all over as well as having welts that have appeared in different places. He has never had a similar episode in the past and no known allergies. He does take lisinopril. He denies medication changes. Monday they went out to dinner and had something that was marinated and had really strong flavor which his couldn't eat, but he used a lot of A1 and was able to eat it. 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 Denies fever. Source: patient, family Date seen by provider: Oct 21, 2019 Time Seen by Provider: 09:00 Attending Physician Hailey Todd MD PCP Self,Wilson MOCTEZUMA Consult Date of Admission Oct 21, 2019 at 05:20 Home Medications Home Medications Reviewed patient Home Medication Reconciliation performed by pharmacy medication reconciliations pollution control technician and/or nursing. Patients Allergies have been reviewed. Allergies Coded Allergies: No Known Allergies (Verified Allergy, Unknown, 08/22/18) JJC-Rdbtfr-Qmkbnp Hx Patient Social History Marrital Status: Alcohol Use: Rarely Uses (1-2 drinks per week) Recreational Drug Use: No Smoking Status: Former Smoker Type Used: Cigars, Cigarettes 2nd Hand Smoke Exposure: No Recent Foreign Travel: No Contact w/other who traveled: No Recent Infectious Disease Expo: No Past Medical History PMHx: HTN Chest pain- has seen Cardiology and had negative work-up including cath June 2018 SurgHx: Hemorrhoid laser Family Medical History Significant Family History: CAD Over 55 Years Old, Hypertension Review of Systems (CHC) Constitutional: No fever EENTM: No nose congestion Respiratory: No cough, No short of breath Cardiovascular: No chest pain Gastrointestinal: No abdominal pain, No constipation, No diarrhea, No nausea, No vomiting Genitourinary: No dysuria Musculoskeletal: joint pain ("normal" age related, no recent changes) Skin: see HPI Reviewed Test Results Reviewed Test Results Lab Laboratory Tests Test 10/21/19 05:00 Range/Units White Blood Count 10.1 4.3-11.0 10^3/uL Red Blood Count 4.36 4.35-5.85 10^6/uL Hemoglobin 13.4 13.3-17.7 G/DL Hematocrit 40 40-54 % Mean Corpuscular Volume 92 80-99 FL Mean Corpuscular Hemoglobin 31 25-34 PG Mean Corpuscular Hemoglobin Concent 33 32-36 G/DL Red Cell Distribution Width 12.5 10.0-14.5 % Platelet Count 280 130-400 10^3/uL Mean Platelet Volume 9.9 7.4-10.4 FL Neutrophils (%) (Auto) 60 42-75 % Lymphocytes (%) (Auto) 32 12-44 % Monocytes (%) (Auto) 7 0-12 % Eosinophils (%) (Auto) 1 0-10 % Basophils (%) (Auto) 0 0-10 % Neutrophils # (Auto) 6.0 1.8-7.8 X 10^3 Lymphocytes # (Auto) 3.2 1.0-4.0 X 10^3 Monocytes # (Auto) 0.7 0.0-1.0 X 10^3 Eosinophils # (Auto) 0.1 0.0-0.3 10^3/uL Basophils # (Auto) 0.0 0.0-0.1 10^3/uL Sodium Level 141 135-145 MMOL/L Potassium Level 4.4 3.6-5.0 MMOL/L Chloride Level 105 98-107 MMOL/L Carbon Dioxide Level 22 21-32 MMOL/L Anion Gap 14 5-14 MMOL/L Blood Urea Nitrogen 16 7-18 MG/DL Creatinine 0.96 0.60-1.30 MG/DL Estimat Glomerular Filtration Rate > 60 BUN/Creatinine Ratio 17 Glucose Level 102 70-105 MG/DL Calcium Level 9.0 8.5-10.1 MG/DL Corrected Calcium 9.2 8.5-10.1 MG/DL Total Bilirubin 0.4 0.1-1.0 MG/DL Aspartate Amino Transf (AST/SGOT) 12 5-34 U/L Alanine Aminotransferase (ALT/SGPT) 20 0-55 U/L Alkaline Phosphatase 84 40-136 U/L Total Protein 6.8 6.4-8.2 GM/DL Albumin 3.7 3.2-4.5 GM/DL Physical Exam-([facility]) Physical Exam Vital Signs VS - Last 72 Hours, by Label 10/21/19 10/21/19 10/21/19 10/21/19 04:57 05:59 06:50 07:00 Temp 36.5 36.8 Pulse 76 72 72 64 Resp 16 16 20 26 B/P (MAP) 133/76 (95) 117/72 143/87 (105) 120/76 (91) Pulse Ox 97 99 97 96 O2 Delivery Room Air Room Air Room Air Room Air 10/21/19 10/21/19 10/21/19 10/21/19 07:44 08:00 08:00 09:00 Temp 36.9 Pulse 66 70 70 Resp 20 18 B/P (MAP) 125/79 (94) 138/85 (102) Pulse Ox 95 96 O2 Delivery Room Air Room Air 10/21/19 10/21/19 10/21/19 10/21/19 10:00 10:17 11:00 11:21 Pulse 83 70 Resp 29 21 B/P (MAP) 137/81 (99) 130/76 (94) Pulse Ox 98 98 94 98 O2 Delivery Room Air Room Air Room Air Room Air Capillary Refill : Less Than 3 Seconds General Appearance: no apparent distress Respiratory: lungs clear, normal breath sounds Cardiovascular: regular rate, rhythm, no murmur Gastrointestinal: normal bowel sounds, non tender, soft Extremities: other (non-pitting edema in hands and feet) Skin: other (few erythematous macules/very slightly raised most about 0.5-1cm in diameter and appear similar to folliculitis/acne over back and sides, upper lip markedly swollen, lower lip mildly swollen, no noticeable tongue swelling at this time) Assessment/Plan Assessment/Plan Admission Status: Observation (1) Angioedema Status: Acute Assessment & Plan: Suspect angioedema from lisinopril, however he has associated itching and rash which is not expected. Hold lisinopril, given epinephrine, solumedrol, diphenhydramine and famotidine in ER and has already marked improvement. Solumedrol continued for now. Qualifiers: Qualified Codes: T78.3XXA - Angioneurotic edema, initial encounter (2) Rash Status: Acute Assessment & Plan: Unclear etiology, monitor closely. (3) Generalized pruritus Status: Acute (4) DVT prophylaxis Status: Acute Assessment & Plan: Enoxaparin Clinical Quality Measures DVT/VTE Risk/Contraindication: Risk Factor Score Per Nursin RFS Level Per Nursing on Admit: 2=Moderate HAILEY TODD MD Oct 21, 2019 09:03
[2019-10-21] MEDS ORDERED: LOVA40TA2 PO (10:37)
[2019-10-21] MEDS ORDERED: PRD20T PO (10:37)
[2019-10-21] MEDS ORDERED: DIPH25CA79 PO (10:37)
--- NOTE | 2019-10-21 10:37 | NUR ---
SPOKE WITH THE PT (AND HIS ) THEN CALLED [facility] IN [place] TO COMPLETE THE MED REC 10-11-2019 LOVASTATIN 40MG #30/30DS 10-11-2019 LISINOPRIL 20MG #30/30DS 10-19-2019 PREDNISONE 20MG #10/7DS (TAPER DOSE 2 TABS D X3 DAYS THEN 1 TAB D X 4 DAYS) OTC MEDS: BENADRYL PRN ASPIRIN 81
--- NOTE | 2019-10-21 11:00 | NUR ---
Pastoral care visit.
[2019-10-21] MEDS: methylPREDNISolone 40 MG/ML (Solu-MEDROL) VIAL IV SCH ×2 (11:42→18:42)
[2019-10-21] MEDS: diphenhydrAMINE 50 MG/ML INJ (BENADRYL) IVP SCH ×2 (11:43→18:43)
[2019-10-21] MEDS ORDERED: ENOXAPARIN 40 MG/0.4 ML (LOVENOX) SYR SQ SCH (12:00)
[2019-10-21] MEDS: ENOXAPARIN 40 MG/0.4 ML (LOVENOX) SYR SQ SCH (13:44)
[2019-10-21] MEDS: CATHETER FLUSH 10 ML SYR IV SCH ×2 (15:01→21:08)
[2019-10-21] MEDS ORDERED: SIMvastatin 20 MG (ZOCOR) TAB PO SCH (21:00)
[2019-10-22] VITALS (8 sets, daily range): BP systolic 114–143; BP diastolic 69–93
[2019-10-22] MEDS: methylPREDNISolone 40 MG/ML (Solu-MEDROL) VIAL IV SCH ×2 (00:26→05:43)
[2019-10-22] MEDS: diphenhydrAMINE 50 MG/ML INJ (BENADRYL) IVP SCH ×2 (00:27→05:43)
[2019-10-22] MEDS: ENOXAPARIN 40 MG/0.4 ML (LOVENOX) SYR SQ SCH (00:28)
--- NOTE | 2019-10-22 01:40 | NUR ---
ATTEMPTED TO ADD CARE PLAN. APPROPRIATE CARE PLAN FOR PATIENT DIAGNOSIS NOT FOUND.
[2019-10-22 03:48] LABS: BASOPHILS % (AUTO) 0 % (0-10); EOSINOPHILS % (AUTO) 0 % (0-10); HEMATOCRIT 38 % (40-54); HEMOGLOBIN 12.5 G/DL (13.3-17.7); LYMPHOCYTES # (AUTO) 1.4 X 10^3 (1.0-4.0); LYMPHOCYTES % (AUTO) 14 % (12-44); MEAN CORPUSCULAR HEMOGLOBIN 30 PG (25-34); MEAN CORPUSCULAR HGB CONC 33 G/DL (32-36); MEAN CORPUSCULAR VOLUME 92 FL (80-99); MEAN PLATELET VOLUME 10.2 FL (7.4-10.4); MONOCYTES # (AUTO) 0.4 X 10^3 (0.0-1.0); MONOCYTES % (AUTO) 4 % (0-12); NEUTROPHILS # (AUTO) 8.2 X 10^3 (1.8-7.8); NEUTROPHILS % (AUTO) 82 % (42-75); PLATELET COUNT 278 10^3/uL (130-400); RED CELL DISTRIBUTION WIDTH 12.8 % (10.0-14.5)
[2019-10-22 04:05] LABS: CHLORIDE 107 MMOL/L (98-107); POTASSIUM 4.4 MMOL/L (3.6-5.0); SODIUM 140 MMOL/L (135-145)
[2019-10-22 04:06] LABS: CALCIUM 9.1 MG/DL (8.5-10.1); GLUCOSE 157 MG/DL (70-105)
[2019-10-22 04:08] LABS: CARBON DIOXIDE 22 MMOL/L (21-32)
[2019-10-22 04:10] LABS: CREATININE SERUM 0.87 MG/DL (0.60-1.30); GFR ESTIMATED > 60; PHOSPHORUS 4.1 MG/DL (2.3-4.7)
[2019-10-22 04:11] LABS: BUN/CREATININE RATIO 23
[2019-10-22 04:13] LABS: MAGNESIUM 2.3 MG/DL (1.6-2.4)
[2019-10-22] MEDS: CATHETER FLUSH 10 ML SYR IV SCH (05:42)
[2019-10-22] MEDS ORDERED: MAGNESIUM 1 GM/100 ML IVPB 100 ML IV SCH (06:00)
[2019-10-22] MEDS ORDERED: KCL 20 MEQ TAB (K-DUR) PO SCH (06:00)
[2019-10-22] MEDS ORDERED: POTASSIUM CL 10MEQ/50ML IVPB 50 ML IV SCH (06:00)
--- NOTE | 2019-10-22 07:41 | Pulmonary Progress Note ---
Subjective Time Seen by a Provider: 07:40 Subjective/Events-last exam Pt feels much improved. Sepsis Event Evaluation Height, Weight, BMI Height: 5'10.00" Weight: 290lbs. 0.0oz. 131.097639kw; 41.14 BMI Method: Exam Exam Vital Signs Date Time Temp Pulse Resp B/P (MAP) Pulse Ox O2 Delivery O2 Flow Rate FiO2 10/22/19 06:00 73 11 139/77 (97) 99 Room Air 10/22/19 05:00 53 14 114/69 (84) 95 Room Air 10/22/19 04:00 97 Room Air 10/22/19 04:00 36.8 10/22/19 04:00 58 19 122/74 (90) 96 Room Air 10/22/19 03:00 55 14 130/75 (93) 95 Room Air 10/22/19 02:00 54 13 129/76 (93) 95 Room Air 10/22/19 01:00 64 25 143/89 (107) 98 Room Air 10/22/19 01:00 64 10/22/19 00:00 58 18 130/73 (92) 94 Room Air 10/22/19 00:00 97 Room Air 10/21/19 23:25 36.5 10/21/19 23:00 66 25 137/75 (95) 93 Room Air 10/21/19 22:00 64 24 134/83 (100) 94 Room Air 10/21/19 21:00 65 23 129/82 (98) 95 Room Air 10/21/19 20:00 69 7 136/81 (99) 95 Room Air 10/21/19 20:00 97 Room Air 10/21/19 19:28 37.0 10/21/19 19:00 66 15 132/77 (95) 94 Room Air 10/21/19 19:00 66 10/21/19 18:00 64 24 128/93 (105) 93 Room Air 10/21/19 17:00 61 22 122/67 (85) 94 Room Air 10/21/19 16:00 65 14 121/75 (90) 94 Room Air 10/21/19 16:00 98 Room Air 10/21/19 15:59 37.0 10/21/19 15:00 79 22 134/79 (97) 95 Room Air 6/22/20 14:00 75 13 113/69 (84) 98 Room Air 10/21/19 13:00 60 20 99/73 (82) 94 Room Air 10/21/19 12:41 66 10/21/19 12:00 37.1 10/21/19 12:00 66 20 116/65 (82) 94 Room Air 10/21/19 11:21 98 Room Air 10/21/19 11:00 70 21 130/76 (94) 94 Room Air 10/21/19 10:17 98 Room Air 10/21/19 10:00 83 29 137/81 (99) 98 Room Air 10/21/19 09:00 70 18 138/85 (102) 96 Room Air 10/21/19 08:00 36.9 10/21/19 08:00 70 20 125/79 (94) 95 Room Air 10/21/19 07:44 66 I & O 10/22/19 07:00 Intake Total 0 ml Output Total 1600 ml Balance -1600 ml Height & Weight Height: 5'10.00" Weight: 290lbs. 0.0oz. 131.720830ma; 41.14 BMI Method: General Appearance: No Apparent Distress, WD/WN HEENT: PERRL/EOMI, Other (improved facial edema) Neck: Supple Respiratory: Lungs Clear, No Respiratory Distress Cardiovascular: Regular Rate, Rhythm Capillary Refill: Less Than 3 Seconds Gastrointestinal: normal bowel sounds, non tender, soft Extremity: Normal Capillary Refill Neurologic/Psychiatric: Alert, Oriented x3 Skin: Warm/Dry, Other (nonspecific red splotchy rash that is present on his back approximately as well as his arms and a few spots on his legs. Rash looks more consistent with insect bites than hives) Results Lab Laboratory Tests 10/21/19 05:00 10/22/19 03:19 Assessment/Plan Assessment/Plan Angioedema - probably secondary to lisinopril -- improved -solumedrol, Benadryl, and Pepcid -Monitor close -Hold Lisinopril LAM CROOKS DO Oct 22, 2019 07:41
[2019-10-22] MEDS: FAMOTIDINE 20MG/2ML IV (PEPCID) IVP SCH (08:02)
--- NOTE | 2019-10-22 08:58 | Diagnostic Imaging Report ---
INDICATION: Angioedema. TECHNIQUE: Single view chest 3:42 AM. CORRELATION STUDY: 08/22/2018 FINDINGS: Heart size, mediastinum and vasculature overall appear to be within normal limits. Lung grajeda remain relatively clear without significant infiltrate. IMPRESSION: 1. Generally stable, negative appearing portable chest. Dictated by: Dictated on workstation # [id number]
[2019-10-22] MEDS ORDERED: ASPIRIN E.C. 81 MG (ECOTRIN) TAB PO SCH (09:00)
[2019-10-22] MEDS ORDERED: EPIN0.3P3 IJ (09:45)
[2019-10-22] MEDS ORDERED: PRD10T PO (09:45)
[2019-10-22] MEDS ORDERED: CETI10TA17 PO (09:45)
--- NOTE | 2019-10-22 09:46 | Discharge Summary ---
Discharge [facility] Discharge Medications New, Converted or Re-Newed RX: Transmitted to Pharmacy New Medications: Cetirizine HCl (Cetirizine HCl) 10 Mg Tablet 10 MG PO DAILY, #30 TAB 0 Refills Epinephrine (Epipen 2-Roberto) 0.3 Mg/0.3 Ml Auto.injct 0.3 MG IJ PRN, #2 EA 0 Refills Changed Medications: Prednisone (Prednisone) 10 Mg Tab 0 PO UD, #42 TAB 0 Refills (Changed from: Prednisone 20 Mg Tab Mg PO DAILY) Take 6 tabs(60mg)daily, decrease by 1 tab(10mg) every other day. Continued Medications: Aspirin (Aspir 81) 81 Mg Tablet.dr 81 MG PO DAILY, TAB Diphenhydramine HCl (Benadryl) 25 Mg Capsule 50 MG PO Q6H PRN for ALLERGY REACTION, CAP Lovastatin (Lovastatin) 40 Mg Tablet 40 MG PO DAILY, TAB Discontinued Medications: Lisinopril (Lisinopril) 20 Mg Tablet 20 MG PO DAILY, TAB Patient Instructions Goal/Follow Up Appt: Follow up with primary provider by the end of this week. Return to The Hospital For: Swelling, difficulty breathing Activity & Diet Discharge Diet: Cardiac Diet Activity as Tolerated: Yes HAILEY ADORNO MD Oct 22, 2019 09:46
--- NOTE | 2019-10-22 11:04 | Discharge Summary ---
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 Hold lisinopril, given epinephrine, solumedrol, diphenhydramine and famotidine in ER and had marked improvement. Prednisone taper given on d/c as well as scheduled second generation antihistamine, continue to hold lisinopril. Also given script for epi-pen, and discussed if any recurrence will need to see Allergy/Immunology for further work-up. Qualifiers: Qualified Codes: T78.3XXA - Angioneurotic edema, initial encounter (2) Rash Status: Resolved Resolution Date/Time: 10/22/19 @ 11:02 Assessment & Plan: Resolved by d/c. (3) Generalized pruritus Status: Resolved Resolution Date/Time: 10/22/19 @ 11:02 Assessment & Plan: Resolved by d/c. (4) Hypertension Status: Chronic Assessment & Plan: Blood pressure remained normal while inpatient without lisinopril, so no replacement prescribed, will need to follow up for BP check and possible new medication outpatient. Qualifiers: Qualified Codes: I10 - Essential (primary) hypertension Hospital Course Date of Admission: Oct 21, 2019 at 05:20 Admission Diagnosis : Family Physician/Provider: Wilson Felix MD Date of Discharge: 10/22/19 Discharge Diagnosis: See problem list Hospital Course: See problem list Labs and Pending Lab Test: Laboratory Tests 10/21/19 11:15: Glucometer 155H 10/21/19 17:11: Glucometer 155H 10/21/19 23:18: Glucometer 146H 10/22/19 03:19: White Blood Count 10.0, Red Blood Count 4.12L, Hemoglobin 12.5L, Hematocrit 38L, Mean Corpuscular Volume 92, Mean Corpuscular Hemoglobin 30, Mean Corpuscular Hemoglobin Concent 33, Red Cell Distribution Width 12.8, Platelet Count 278, Mean Platelet Volume 10.2, Neutrophils (%) (Auto) 82H, Lymphocytes (%) (Auto) 14, Monocytes (%) (Auto) 4, Eosinophils (%) (Auto) 0, Basophils (%) (Auto) 0, Neutrophils # (Auto) 8.2H, Lymphocytes # (Auto) 1.4, Monocytes # (Auto) 0.4, Eosinophils # (Auto) 0.0, Basophils # (Auto) 0.0, Sodium Level 140, Potassium Level 4.4, Chloride Level 107, Carbon Dioxide Level 22, Anion Gap 11, Blood Urea Nitrogen 20H, Creatinine 0.87, Estimat Glomerular Filtration Rate > 60, BUN/Creatinine Ratio 23, Glucose Level 157H, Calcium Level 9.1, Phosphorus Level 4.1, Magnesium Level 2.3 Microbiology 10/21/19 MRSA Screen - Final, Complete MRSA not isolated Home Meds Active Epipen 2-Roberto (Epinephrine) 0.3 Mg/0.3 Ml Auto.injct 0.3 Mg IJ PRN Cetirizine HCl 10 Mg Tablet 10 Mg PO DAILY Prednisone 10 Mg Tab 0 PO UD Take 6 tabs(60mg)daily, decrease by 1 tab(10mg) every other day. Reported Benadryl (Diphenhydramine HCl) 25 Mg Capsule 50 Mg PO Q6H PRN Lovastatin 40 Mg Tablet 40 Mg PO DAILY Aspir 81 (Aspirin) 81 Mg Tablet. 81 Mg PO DAILY Assessment/Pt DC Instructions Follow up with Dr. Felix within the week. Discharge Diet: Cardiac Diet Discharge Physical Examination Allergies: Coded Allergies: No Known Allergies (Verified Allergy, Unknown, 08/22/18) General Appearance: No Apparent Distress Respiratory: Lungs Clear, Normal Breath Sounds Cardiovascular: Regular Rate, Rhythm, No Murmur Extremity: No Pedal Edema Skin: Normal Color; No Rash; Other (mild faint swelling persistent in mid upper lip) Neurologic/Psychiatric: Alert, Normal Mood/Affect Copy Copies To 1: WILSON FELIX MD Clinical Quality Measures DVT/VTE Risk/Contraindication: Risk Factor Score Per Nursin RFS Level Per Nursing on Admit: 2=Moderate HAILEY ADORNO MD Oct 22, 2019 11:04
[2019-10-22] MEDS ORDERED: methylPREDNISolone 40 MG/ML (Solu-MEDROL) VIAL IV SCH (21:00)
== END 2019-10-22 10:55 | disposition home or self-care (01) | DRG 916 ==
LOC: EDUNIT# 04:52 → ER FS 04:55 → CSD 05:20 → ICU 06:48
PROVIDERS: ADMIT Internal Medicine; ATTEND Family Medicine
DX: T78.3XXA Angioneurotic edema, initial encounter (principal); L29.9 Pruritus, unspecified; I10 Essential (primary) hypertension
CPT/HCPCS: 36415; 71045; 80048; 80053; 82962; 83735; 84100; 85025; 87081; G0378

== ENCOUNTER → 2020-05-21 | Outpatient (CLI) | payer OTHER ==
[~2020-05-21] MED LIST changes: +CETI10TA17 PO; +DIPH25CA79 PO; +EPIN0.3P3 IJ; +LOVA40TA2 PO; +PRD10T PO; +PRD20T PO
--- NOTE | 2020-05-21 09:54 | Diagnostic Imaging Report ---
INDICATION: Shortness of breath. TIME OF EXAM: 9:35 AM Correlation is made with prior chest from 10/22/2019. FINDINGS: Heart size is normal. Lungs are clear. Pulmonary vascularity is normal. No infiltrates are detected. There is no effusion or pneumothorax. IMPRESSION: No acute cardiopulmonary process is detected. Dictated by: Dictated on workstation # [id number]
== END ==
LOC: RAD FS 09:23
PROVIDERS: ATTEND Family Medicine
DX: R06.02 Shortness of breath (principal)
CPT/HCPCS: 71046

== ENCOUNTER → 2023-02-01 | Outpatient (CLI) | payer OTHER ==
[~2023-02-01] MED LIST changes: -LISI-552 PO; +LISI20TA26 PO
== END ==
LOC: CANPRECLI → CARD 13:49
PROVIDERS: ATTEND Internal Medicine Cardiovascular Disease
DX: I11.9 Hypertensive heart disease without heart failure (principal)
CPT/HCPCS: 93320

== ENCOUNTER → 2023-03-06 | Outpatient (CLI) | payer OTHER ==
[~2023-03-06] MED LIST changes: +CATHETER FLUSH 10 ML SYR IVP PRN
[2023-03-06 08:59] VITALS: BP 129/72
--- NOTE | 2023-03-06 12:34 | Cardiology Stress Test Report ---
Stress Test Report Date of Procedure/Referring: Date of Procedure: Mar 06, 2023 PCP Wilson Felix MD Admitting Physician Admitting Physician: Attending Physician: Krystle Arevalo MD Baseline Heart Rate: 61 Baseline Blood Pressure: Blood Pressure Systolic: 129 Blood Pressure Diastolic: 72 Vital Signs Date Time Temp Pulse Resp B/P (MAP) Pulse Ox O2 Delivery O2 Flow Rate FiO2 03/06/23 08:59 67 129/72 (91) Baseline Vital Signs Vital Signs Date Time Temp Pulse Resp B/P (MAP) Pulse Ox O2 Delivery O2 Flow Rate FiO2 03/06/23 08:59 67 129/72 (91) Baseline EKG: Baseline EKG: NSR Summary: After explaining the procedure and details to the patient, he signed the consent and was brought to the stress nuclear laboratory. Patient exercised on standard [place] protocol, EKG, heart rate and blood pressure were monitored continuously, resting and stress doses of radio tracer were injected, imaging was acquired and reviewed in the short axis, horizontal long axis and vertical long axis views Patient was able to exercise for a total of 8.30 minutes on [place] protocol, METs 9.1 Maximum heart rate 135 Maximum blood pressure 211/81 Stress EKG, Minimal nondiagnostic changes Recovery EKG, Return to baseline TID: 0.97 SSS: 1 SDS: 1 EF: 58 Conclusion: Good exercise tolerance for 8 minutes and 30 seconds on standard [place] protocol, 9.1 METS achieving 83% of maximal expected heart rate Appropriate heart rate response to exercise with hypertensive response to exercise with peak blood pressure 211/81 return to baseline during recovery Nondiagnostic EKG changes with exercise return to baseline during recovery No significant ischemia or infarction noted on SPECT images Normal left ventricular size, ejection fraction 58% Copy Copies To 1: WILSON FELIX MD, BASHAR J MD Mar 06, 2023 12:34
== END ==
LOC: CARD 07:05
PROVIDERS: ATTEND Internal Medicine Cardiovascular Disease
DX: I10 Essential (primary) hypertension (principal)
CPT/HCPCS: 78452; 93017; A9502